=== PATIENT | male | born 1990 | race Two or more races ===

== ENCOUNTER 2022-03-12 17:39 | Emergency (ER) | payer MEDICAID, OTHER ==
[~2022-03-12] VITALS: Ht 177.8 cm; Wt 72.6 kg
--- NOTE | 2022-03-12 18:00 | NUR ---
BIBFRIEND C/O abdominal pain, nausea and vomiting, alcohol widrawal.last intake monday also c/o suicidal ideation, no active plan. PLACED ON BED, AAOX4, CALM- COOPERATIVE, WILL CONTINUE TO MONITOR.
--- NOTE | 2022-03-12 18:45 | NUR ---
BLOOD DRAWN, COVID19 SWAB, URINE SAMPLE SENT TO LAB.
[2022-03-12] MEDS: IV NS 0.9% 1,000 ML BAG IV ONE (18:50)
[2022-03-12 18:51] LABS: BILIRUBIN,URINE NEGATIVE (NEGATIVE); COLOR,URINE YELLOW (YELLOW); LEUKOCYTE ESTERASE ,URINE NEGATIVE (NEGATIVE); NITRITE, URINE NEGATIVE (NEGATIVE); PH,URINE 7.5 (5.0-8.0); PROTEIN,URINE NEGATIVE (NEGATIVE); UGLUCOSE NEGATIVE (NEGATIVE)
[2022-03-12] MEDS ORDERED: LORAZEPAM INJ 2 MG/ML VIAL ONE (18:53)
[2022-03-12 18:56] LABS: BACTERIA,URINE N0 /HPF (None Seen); RBC,URINE 0-2 /HPF (0-2); SQUAMOUS EPITHELIAL CELL,UR 0-2 /HPF (None Seen); WBC,URINE 0-2 /HPF (0-3)
[2022-03-12] MEDS: LORAZEPAM INJ 2 MG/ML VIAL IV ONE (18:58)
[2022-03-12 19:13] LABS: CALCIUM, SERUM 8.4 mg/dL (8.5-10.1); CARBON DIOXIDE 32 mmol/L (21-32); CHLORIDE 102 mmol/L (98-107); GLUCOSE 94 mg/dL (74-106); POTASSIUM 3.9 mmol/L (3.5-5.1); SODIUM SERUM 140 mmol/L (136-145); UREA NITROGEN, BLOOD 13 mg/dL (7-18)
[2022-03-12 19:19] LABS: ALANINE AMINOTRANSFERASE 38 U/L (12-78); ALBUMIN 4.1 g/dL (3.4-5.0); ALCOHOL, BLOOD < 3 mg/dL (0-0); ALKALINE PHOSPHATASE 83 U/L (46-116); ASPARTATE AMINOTRANSFERASE 35 U/L (15-37); BILIRUBIN,TOTAL 0.7 mg/dL (0.2-1.0); TOTAL PROTEIN, SERUM 7.6 g/dL (6.4-8.2)
[2022-03-12 19:22] LABS: ACETAMINOPHEN 0 ug/ml (10-30)
[2022-03-12 19:31] LABS: BILIRUBIN,DIRECT 0.2 mg/dL (0.0-0.2)
[2022-03-12 20:22] LABS: BASOPHILS % (AUTO) 0.4 % (0.0-2.0); EOSINOPHILS % (AUTO) 2.9 % (0.0-6.0); HEMATOCRIT 47 % (39-51); HEMOGLOBIN 16.2 g/dL (13.5-17.5); LYMPHOCYTES # (AUTO) 1.2 K/uL (0.8-4.8); LYMPHOCYTES % (AUTO) 23.1 % (20.0-44.0); MEAN CORPUSCULAR HGB CONC 34 g/dl (31.0-36.0); MEAN CORPUSCULAR VOLUME 89 fL (80-96); MONOCYTES # (AUTO) 0.6 K/uL (0.1-1.30); MONOCYTES % (AUTO) 10.5 % (2.0-12.0); NEUTROPHILS # (AUTO) 3.4 K/uL (1.8-8.9); NEUTROPHILS % (AUTO) 63.1 % (43.0-81.0); PLATELET COUNT (AUTO) 212 K/uL (150-450); RED BLOOD CELL COUNT(AUTO) 5.28 MIL/uL (4.5-6.0); WHITE BLOOD COUNT (AUTO) 5.4 K/uL (4.3-11.0)
--- NOTE | 2022-03-12 20:47 | NUR ---
MAY CONTACT ANKIT (SISTER) AT [phone] FOR UPDATE.
--- NOTE | 2022-03-12 22:45 | NUR ---
[facility] - CRISIS TEAM PAGED FOR EVAL.
--- NOTE | 2022-03-12 23:55 | NUR ---
[facility]- CRISIS TEAM AT BEDSIDE FOR EVAL.
--- NOTE | 2022-03-13 10:00 | NUR ---
CALLED [facility] [phone] MARIA FERNANDA WILL LET US KNOW IN 15 MINS ABOUT ACCEPTENCE.
--- NOTE | 2022-03-13 10:26 | NUR ---
FAXED HOLD TO [phone]
--- NOTE | 2022-03-13 10:30 | NUR ---
[facility] CLIN[facility]ALS [facility].
--- NOTE | 2022-03-13 13:03 | NUR ---
[facility] CALLED REQUESTING CLINICALS FAXED TO SHARAN GRANADO [phone]
--- NOTE | 2022-03-13 13:04 | NUR ---
[facility] CALLED REQUESTING CLINICALS FAXED TO [facility] [phone]
--- NOTE | 2022-03-13 15:04 | NUR ---
PATIENT GAVE PERMISSION TO PROVIDE UPDATE TO MOTHER-PRASHANT SMITH [phone]
--- NOTE | 2022-03-13 15:10 | NUR ---
CALLED [facility] [phone] ABOUT FAMILY
--- NOTE | 2022-03-13 15:13 | NUR ---
CALLED [facility] [phone] CELIA IRVING HOLDING PATIENTS IN ER AND PROBABLY NO BED UNTIL TOMORROW.
--- NOTE | 2022-03-13 15:56 | NUR ---
FACESHEET, CLINICALS FAXED TO [facility]. CONFIRMED FAXED RECIEVED.
--- NOTE | 2022-03-13 15:59 | NUR ---
[facility] [phone] CALLED NO ABLE TO ACCEPT PATIENT.
[2022-03-13] MEDS: SERTRALINE HCL 25 MG TABLET PO SCH (19:17)
--- NOTE | 2022-03-14 07:04 | NUR ---
MIL, MOTHER: [phone]
[2022-03-14] MEDS ORDERED: SERT25TA PO (08:47)
[2022-03-14] MEDS ORDERED: BICT1TAB PO (08:47)
--- NOTE | 2022-03-14 09:33 | NUR ---
Mark rodriguez friend who has bictarvi medication [phone]
[2022-03-14 09:38] VITALS: BP 138/86
[2022-03-14] MEDS: SERTRALINE HCL 25 MG TABLET PO ONE (09:49)
--- NOTE | 2022-03-14 10:00 | NUR ---
Airdox Fitter Note SW [facility] to inquire about [facility].
--- NOTE | 2022-03-14 10:38 | NUR ---
[facility] [phone] HAVE BED REQUESTING ANOTHER COVID TEST FAXED TO [phone]. WILL CALL US BACK WITH BED ASSIGNMENT.
--- NOTE | 2022-03-14 10:43 | NUR ---
ACCEPTED AT [facility] AND TX INFO WILL BE GIVEN AFTER A REPEAT COVID TEST IS RESULTED
--- NOTE | 2022-03-14 11:30 | NUR ---
[facility] CONTACTED AND PLACED PT ON WILL CALL
--- NOTE | 2022-03-14 11:33 | NUR ---
COVID TEST RESULT FAXED REQUESTED
--- NOTE | 2022-03-14 12:17 | NUR ---
Meg, intake called. Patient will go to [place] [address] (accepting MD,) call [phone] for report. Address [address] [address].
--- NOTE | 2022-03-14 12:30 | NUR ---
[facility] CALLED AND ETA 60 MINS
[2022-03-14] MEDS ORDERED: SERTRALINE HCL 25 MG TABLET PO SCH (13:00)
--- NOTE | 2022-03-14 13:04 | NUR ---
REPORT GIVEN TO RHINA ROPER [facility] [phone] FOR ITZEL
--- NOTE | 2022-03-14 13:54 | NUR ---
PATIENT TAKEN BY [facility] STAFF FOR TRANSFER TO [facility] FOR ITZEL IN A STABLE, CALM, COOPERATIVE BEHAVIOR.
--- NOTE | 2022-03-14 13:54 | NUR ---
EMT AT BEDSIDE TO PICKUP PT
== END 2022-03-14 13:54 ==
LOC: ER 17:47
DX: R45.851 Suicidal ideations (principal); F10.239 Alcohol dependence with withdrawal, unspecified; Y90.9 Presence of alcohol in blood, level not specified; F43.10 Post-traumatic stress disorder, unspecified; Z20.822 Contact with and (suspected) exposure to COVID-19
CPT/HCPCS: 99285; 96374; 96361; 85025; 80048; 83690; 80076; 81001; 36415; 87426 ×2; 80143; 80320; 80307; J2060; J7030; C9803 ×2; G0480